=== PATIENT | male | born 2000 | race Caucasian/White ===

== ENCOUNTER 2022-11-05 19:26 | Emergency (ER) | payer OTHER ==
[2022-11-05] MEDS ORDERED: KETOROLAC 60 MG/2 ML VIAL IM STA (19:41)
[2022-11-05] MEDS ORDERED: HYDROmorphone 1 MG/ML CARPUJECT IM STA (19:41)
--- NOTE | 2022-11-05 19:42 | ED Physician Documentation ---
PD HPI BACK PAIN - Stated complaint Stated Complaint: LOWER BACK PX - Chief complaint Chief Complaint: Back Pain - History obtained from History obtained from: Patient - Additional information Additional information: He was doing squats about half an hour ago and went to deep. [place] a pop in his low back with pain radiating from the low back down in the left buttock. He had a similar episode about a year ago but it was milder. He was in pain then for several months. He denies weakness, numbness, tingling, saddle anesthesia, fevers, incontinence. Has not taken anything for the pain yet. He is here with a friend who is driving. PD PAST MEDICAL HISTORY - Past Medical History Past Medical History: No Cardiovascular: None Respiratory: None Neuro: None Endocrine/Autoimmune: None GI: None : None HEENT: None Psych: None Musculoskeletal: None Derm: None - Past Surgical History Past Surgical History: No - Present Medications Home Medications: Ambulatory Orders Medication Instructions Recorded Confirmed Cyclobenzaprine [Flexeril] 10 mg PO TID PRN #20 tablet 11/05/22 HYDROcod/ACETAM 5/325 [Big Arm 5/325] 1 - 2 tab PO Q6H PRN #15 tablet 11/05/22 Ibuprofen [Motrin] 600 mg PO Q6H PRN #30 tab 11/05/22 - Allergies Allergies/Adverse Reactions: Allergies Allergy/AdvReac Type Severity Reaction Status Date / Time No Known Drug Allergies Allergy Verified 11/05/22 19:33 - Social History Does the pt smoke?: No Smoking Status: Never smoker Does the pt drink ETOH?: No Does the pt have substance abuse?: No - Immunizations Immunizations are current?: Yes - POLST Patient has POLST: No PD ED PE NORMAL - Vitals Vital signs reviewed: Yes - General General: Alert and oriented X 3, Other (He appears comfortable at rest, but I cannot even sit him up on initial evaluation to look at his back.) - Back Back: No spinal TTP - Extremities Extremities: Other (The patient has equal and normal Achilles and patellar reflexes bilaterally. Normal sensation in all areas of the legs. Patient denies saddle anesthesia. Normal strength in flexion-extension at the ankles, knees, and flexion of the hips.) - Neuro Neuro: Alert and oriented X 3, Normal speech - Psych Psych: Normal mood, Normal affect Results - Vitals Vitals: Vital Signs - 24 hr 11/05/22 11/05/22 19:28 20:23 Temperature 37.1 C Heart Rate 76 84 Respiratory 17 18 Rate Blood Pressure 125/68 118/68 O2 Saturation 98 97 Oxygen O2 Source Room air PD Medical Decision Making - ED course ED course: This patient has seemingly uncomplicated musculoskeletal back pain. The patient has no "red flags." Specifically denies IV drug use, fevers, incontinence, saddle anesthesia. Spinal epidural abscess was considered, given that the patient has no fever, is not diabetic, has no spinal tenderness, does not use IV drugs, and has no bilateral neurologic symptoms, the diagnosis of spinal epidural abscess is considered exceedingly unlikely. He was administered 2 mg of IM Dilaudid and 60 mg of IM Toradol and on recheck was moving much better and requesting discharge. Departure - Departure Disposition: 01 Home, Self Care Clinical Impression: Back muscle spasm Condition: Good Record reviewed to determine appropriate education?: Yes Instructions: ED Low Back Pain Injury Prescriptions: Cyclobenzaprine [Flexeril] 10 mg PO TID PRN #20 tablet PRN Reason: Spasms Ibuprofen [Motrin] 600 mg PO Q6H PRN #30 tab PRN Reason: Pain HYDROcod/ACETAM 5/325 [Big Arm 5/325] 1 - 2 tab PO Q6H PRN #15 tablet PRN Reason: Pain Comments: I sent your prescription electronically to [facility] in [place]. Follow-up with your flight surgeon for further evaluation and treatment, consideration for physical therapy. Return if worse. I am prescribing a short course of narcotic pain medication for you. These are potentially dangerous and addictive medications that should be used carefully. These medications may constipate you. Take an ospe-adx-kqqwvqi stool softener (docusate) twice daily with plenty of water while taking these medications. If you go 24 hours without a bowel movement, take iyre-asw-vafrwao miralax, per package instructions. Do not drink or drive while taking these medications. If you received narcotic or sedating medications while in the emergency department, do not drive for 24 hours. Store this medication in a safe, secure place and out of reach of children. It is a violation of federal law to give or sell this medication to another rson or to use in a manner other than prescribed. The ED will not refill narcotic prescriptions, including prescriptions lost or stolen. To dispose of unwanted medications: 1. [facility] at [address] in [place] has a medication drop box. They accept prescription medications (in pill form) Thursday through Thursday 9:00 a.m. to 5:00 p.m. 2. [facility], [place] [employer] accepts prescription medications (in pill form only) for disposal year round. Call for more information. 3. Contact the [facility] for the next [facility] sponsored prescription drug collection event. , x7310, or [phone]; Note that many narcotic pain relievers also contain Tylenol/acetaminophen. Please ensure that your total dose of acetaminophen from all sources does not exceed 3 g (3000 mg) per day. Forms: Activity restrictions Discharge Date/Time: 11/05/22 20:24
[2022-11-05 20:27] VITALS: BP 118/68
== END 2022-11-05 20:24 | disposition home or self-care (01) ==
LOC: ED 19:26
DX: M62.830 Muscle spasm of back (principal)
CPT/HCPCS: 96372; 99283; J1170